=== PATIENT | male | born 1950 | race Caucasian/White ===

== ENCOUNTER → 2018-01-16 | Outpatient (CLI) | payer MEDICARE | END | disposition home or self-care (01) | LOC: US 13:01 | DX: I73.9 Peripheral vascular disease, unspecified (principal) ==

== ENCOUNTER 2021-12-12 04:04 | Emergency (ER) | payer OTHER, MEDICAID ==
[~2021-12-12] VITALS: Ht 175.2 cm; Wt 145.1 kg
[2021-12-12 04:28] LABS: BASO # 0.1 10*3/uL (0.0-0.1); BASO % 0.8 % (0.0-1.0); EOS # 0.1 10*3/uL (0.0-0.4); EOS % 2.2 % (1.0-4.0); HEMATOCRIT 42.8 % (42.0-52.0); LYMPH # 1.8 10*3/uL (1.3-4.4); MEAN CELL VOLUME 89.5 fl (80.0-94.0); MEAN CORPUSCULAR HGB 29.7 pg (27.0-31.0); MEAN CORPUSCULAR HGB CONC 33.2 g/dl (33.0-37.0); MEAN PLATELET VOLUME 9.1 fl (9.6-12.3); MONO # 0.5 10*3/uL (0.1-1.0); NEUT % 61.1 % (47.0-73.0); PLATELET COUNT AUTOMATED 109 10*3/uL (130-400); RED BLOOD COUNT 4.78 10*6/uL (4.50-5.90); RED CELL DISTRI WIDTH 13.2 % (0-14.5); WHITE BLOOD COUNT 6.5 10*3/uL (4.8-10.8)
[2021-12-12 04:45] LABS: ALBUMIN 3.1 gm/dl (3.1-4.5); CREATININE 1.41 mg/dL (0.70-1.30); POTASSIUM 3.9 mmol/L (3.5-5.1); TOTAL PROTEIN 6.5 gm/dL (6.4-8.2)
== END 2021-12-12 08:52 | disposition home or self-care (01) ==
LOC: ED 04:04
PROVIDERS: Internal Medicine
DX: E11.40 Type 2 diabetes mellitus with diabetic neuropathy, unspecified (principal); Z88.6 Allergy status to analgesic agent; I25.2 Old myocardial infarction; Z86.718 Personal history of other venous thrombosis and embolism

== ENCOUNTER 2022-01-26 14:36 | Inpatient (IN) | payer OTHER ==
[~2022-01-26] VITALS: Ht 177.8 cm; Wt 138.9 kg
[2022-01-26 14:55] VITALS: BP 158/63
[2022-01-26 15:37] LABS: BASO % 0.6 % (0.0-1.0); EOS # 0.2 10*3/uL (0.0-0.4); EOS % 2.3 % (1.0-4.0); HEMATOCRIT 44.1 % (42.0-52.0); LYMPH # 1.2 10*3/uL (1.3-4.4); MEAN CELL VOLUME 90.9 fl (80.0-94.0); MEAN CORPUSCULAR HGB 30.1 pg (27.0-31.0); MEAN CORPUSCULAR HGB CONC 33.1 g/dl (33.0-37.0); MEAN PLATELET VOLUME 8.9 fl (9.6-12.3); MONO # 0.5 10*3/uL (0.1-1.0); MONO % 7.5 % (3.0-9.0); NEUT # 4.8 10*3/uL (2.3-7.9); PLATELET COUNT AUTOMATED 120 10*3/uL (130-400); RED BLOOD COUNT 4.85 10*6/uL (4.50-5.90); RED CELL DISTRI WIDTH 15.2 % (0-14.5); WHITE BLOOD COUNT 6.8 10*3/uL (4.8-10.8)
[2022-01-26 15:50] LABS: ACT PARTIAL THROMBO TIME 46.4 SECONDS (20.0-32.1); INTERNATIONAL NORM RATIO 2.6 (2.0-3.5)
[2022-01-26 15:53] LABS: ALKALINE PHOSPHATASE 92 U/L (45-117); BUN 14 mg/dl (7-24); CHLORIDE 103 mmol/L (98-107); POTASSIUM 3.9 mmol/L (3.5-5.1); SGOT/AST 21 IU/L (3-35); SGPT/ALT 34 U/L (12-78); SODIUM 135 mmol/L (136-145); TOTAL PROTEIN 7.4 gm/dL (6.4-8.2)
[2022-01-26 17:20] VITALS: BP 162/68
[2022-01-26] MEDS ORDERED: GABAPENTIN800 MG PO (18:25)
[2022-01-26] MEDS ORDERED: TRAMADOL HCL50 MG PO (18:27)
[2022-01-26] MEDS ORDERED: TRULICITY0.75 MG/0. SC (18:29)
[2022-01-26] MEDS ORDERED: QUETIAPINE FUMA50 M1 PO (18:30)
[2022-01-26] MEDS ORDERED: QUETIAPINE FUM200 M3 PO (18:31)
[2022-01-26] MEDS ORDERED: RIVASTIGMINE1 EAC1 T (18:32)
[2022-01-26] MEDS ORDERED: ATORVASTATIN CA10 M1 PO (18:33)
[2022-01-26] MEDS ORDERED: ALLOPURINOL100 MG PO (18:33)
[2022-01-26] MEDS ORDERED: BUMETANIDE1 MG PO (18:34)
[2022-01-26] MEDS ORDERED: CLONIDINE1 EAC1 T (18:35)
[2022-01-26] MEDS ORDERED: DOXAZOSIN MESYLA2 MG PO (18:37)
[2022-01-26] MEDS ORDERED: GLIPIZIDE5 MG PO (18:39)
[2022-01-26] MEDS ORDERED: JARDIANCE25 MG PO (18:41)
[2022-01-26] MEDS ORDERED: JANUVIA25 MG PO (18:41)
[2022-01-26] MEDS ORDERED: PRAMIPEXOLE0.125 MG PO (18:42)
[2022-01-26] MEDS ORDERED: TIZANIDINE HCL4 MG PO (18:43)
[2022-01-26] MEDS ORDERED: DULOXETINE HCL60 MG PO (18:44)
[2022-01-26] MEDS ORDERED: WARFARIN SODIUM5 MG PO (18:44)
[2022-01-26] MEDS ORDERED: DONEPEZIL HCL10 MG PO (18:46)
[2022-01-26] MEDS ORDERED: ZETIA10 MG PO (18:47)
[2022-01-26 20:00] VITALS: BP 131/62
[2022-01-27] VITALS: BP 160/73
[2022-01-27 06:24] LABS: BASO % 0.6 % (0.0-1.0); BUN 14 mg/dl (7-24); CHLORIDE 103 mmol/L (98-107); CHOLESTEROL 102 mg/dL (<200); CREATININE 1.16 mg/dL (0.70-1.30); EOS # 0.2 10*3/uL (0.0-0.4); EOS % 2.8 % (1.0-4.0); HEMATOCRIT 42.6 % (42.0-52.0); LYMPH # 1.4 10*3/uL (1.3-4.4); LYMPH % 22.2 % (27.0-41.0); MEAN CELL VOLUME 89.7 fl (80.0-94.0); MEAN CORPUSCULAR HGB 29.7 pg (27.0-31.0); MEAN CORPUSCULAR HGB CONC 33.1 g/dl (33.0-37.0); MEAN PLATELET VOLUME 9.5 fl (9.6-12.3); MONO # 0.6 10*3/uL (0.1-1.0); MONO % 9.9 % (3.0-9.0); NEUT % 63.2 % (47.0-73.0); PLATELET COUNT AUTOMATED 146 10*3/uL (130-400); POTASSIUM 3.4 mmol/L (3.5-5.1); RED BLOOD COUNT 4.75 10*6/uL (4.50-5.90); RED CELL DISTRI WIDTH 14.7 % (0-14.5); SGOT/AST 23 IU/L (3-35); SGPT/ALT 31 U/L (12-78); SODIUM 136 mmol/L (136-145); WHITE BLOOD COUNT 6.4 10*3/uL (4.8-10.8)
[2022-01-27 06:29] LABS: ALKALINE PHOSPHATASE 85 U/L (45-117); FREE T4 0.85 ng/dl (0.76-1.46); LDL CHOLESTEROL 20 mg/dL (9-159); TRIGLYCERIDES 241 mg/dl (<150)
[2022-01-27 06:30] LABS: ACT PARTIAL THROMBO TIME 46.1 SECONDS (20.0-32.1); INTERNATIONAL NORM RATIO 2.5 (2.0-3.5)
[2022-01-27 08:00] VITALS: BP 140/74
[2022-01-27 08:26] LABS: VITAMIN D, 25-HYDROXY 25.6 ng/mL (30-100)
[2022-01-27 12:00] VITALS: BP 106/77
[2022-01-27 16:00] VITALS: BP 141/102
[2022-01-27 20:00] VITALS: BP 144/55
[2022-01-28] VITALS (8 sets, daily range): BP systolic 141–155; BP diastolic 63–78
[2022-01-28 06:20] LABS: BUN 17 mg/dl (7-24); CHLORIDE 104 mmol/L (98-107); CREATININE 1.22 mg/dL (0.70-1.30); POTASSIUM 3.4 mmol/L (3.5-5.1); SODIUM 138 mmol/L (136-145)
[2022-01-28 06:22] LABS: BASO # 0.1 10*3/uL (0.0-0.1); BASO % 0.8 % (0.0-1.0); EOS # 0.3 10*3/uL (0.0-0.4); EOS % 3.8 % (1.0-4.0); HEMATOCRIT 41.4 % (42.0-52.0); LYMPH # 1.7 10*3/uL (1.3-4.4); LYMPH % 25.2 % (27.0-41.0); MEAN CELL VOLUME 89.4 fl (80.0-94.0); MEAN CORPUSCULAR HGB 29.4 pg (27.0-31.0); MEAN CORPUSCULAR HGB CONC 32.9 g/dl (33.0-37.0); MEAN PLATELET VOLUME 9.2 fl (9.6-12.3); MONO # 0.6 10*3/uL (0.1-1.0); MONO % 9.2 % (3.0-9.0); NEUT # 3.9 10*3/uL (2.3-7.9); NEUT % 59.8 % (47.0-73.0); PLATELET COUNT AUTOMATED 142 10*3/uL (130-400); RED BLOOD COUNT 4.63 10*6/uL (4.50-5.90); RED CELL DISTRI WIDTH 14.9 % (0-14.5); WHITE BLOOD COUNT 6.6 10*3/uL (4.8-10.8)
[2022-01-28 06:32] LABS: INTERNATIONAL NORM RATIO 1.6 (2.0-3.5)
[2022-01-29] VITALS: BP 135/92
[2022-01-29 04:00] VITALS: BP 132/88
[2022-01-29 05:32] LABS: BUN 16 mg/dl (7-24); CHLORIDE 102 mmol/L (98-107); CREATININE 1.14 mg/dL (0.70-1.30); POTASSIUM 3.4 mmol/L (3.5-5.1); SODIUM 135 mmol/L (136-145)
[2022-01-29 06:06] LABS: BASO # 0.1 10*3/uL (0.0-0.1); EOS # 0.4 10*3/uL (0.0-0.4); EOS % 5.3 % (1.0-4.0); HEMATOCRIT 41.1 % (42.0-52.0); LYMPH # 1.7 10*3/uL (1.3-4.4); LYMPH % 23.5 % (27.0-41.0); MEAN CELL VOLUME 91.3 fl (80.0-94.0); MEAN CORPUSCULAR HGB CONC 32.8 g/dl (33.0-37.0); MEAN PLATELET VOLUME 9.1 fl (9.6-12.3); MONO # 0.6 10*3/uL (0.1-1.0); MONO % 8.4 % (3.0-9.0); NEUT # 4.3 10*3/uL (2.3-7.9); NEUT % 60.5 % (47.0-73.0); PLATELET COUNT AUTOMATED 138 10*3/uL (130-400); WHITE BLOOD COUNT 7.1 10*3/uL (4.8-10.8)
[2022-01-29 06:22] LABS: INTERNATIONAL NORM RATIO 1.3 (2.0-3.5)
[2022-01-29 08:00] VITALS: BP 127/57
[2022-01-29 12:00] VITALS: BP 150/66
[2022-01-29 16:00] VITALS: BP 123/41
[2022-01-29 20:00] VITALS: BP 133/61
[2022-01-30] VITALS: BP 131/45
[2022-01-30 08:00] VITALS: BP 134/57; BP 146/77
[2022-01-30 12:00] VITALS: BP 136/55
[2022-01-30 16:00] VITALS: BP 148/60
[2022-01-30 20:00] VITALS: BP 113/88
[2022-01-31] VITALS: BP 132/62
[2022-01-31 08:00] VITALS: BP 114/58
[2022-01-31 12:00] VITALS: BP 101/52
[2022-01-31 16:00] VITALS: BP 135/73
[2022-01-31 20:00] VITALS: BP 141/72
[2022-02-01] VITALS: BP 126/64
[2022-02-01 06:11] LABS: POTASSIUM 3.2 mmol/L (3.5-5.1)
[2022-02-01 06:13] LABS: CREATININE 1.44 mg/dL (0.70-1.30)
[2022-02-01 06:44] LABS: BASO # 0.1 10*3/uL (0.0-0.1); BASO % 0.8 % (0.0-1.0); EOS # 0.3 10*3/uL (0.0-0.4); EOS % 3.8 % (1.0-4.0); HEMATOCRIT 40.9 % (42.0-52.0); LYMPH # 1.8 10*3/uL (1.3-4.4); LYMPH % 23.6 % (27.0-41.0); MEAN CELL VOLUME 89.9 fl (80.0-94.0); MEAN CORPUSCULAR HGB 29.9 pg (27.0-31.0); MEAN CORPUSCULAR HGB CONC 33.3 g/dl (33.0-37.0); MEAN PLATELET VOLUME 9.6 fl (9.6-12.3); MONO # 0.5 10*3/uL (0.1-1.0); NEUT # 4.8 10*3/uL (2.3-7.9); NEUT % 63.6 % (47.0-73.0); PLATELET COUNT AUTOMATED 138 10*3/uL (130-400); RED BLOOD COUNT 4.55 10*6/uL (4.50-5.90); RED CELL DISTRI WIDTH 14.6 % (0-14.5); WHITE BLOOD COUNT 7.5 10*3/uL (4.8-10.8)
[2022-02-01 08:00] VITALS: BP 120/64
[2022-02-01 08:30] LABS: INTERNATIONAL NORM RATIO 1.7 (2.0-3.5)
[2022-02-01 12:00] VITALS: BP 124/59
[2022-02-01 16:00] VITALS: BP 137/66
[2022-02-01 20:00] VITALS: BP 133/62
[2022-02-02] VITALS: BP 130/56
[2022-02-02 06:38] LABS: BUN 19 mg/dl (7-24); CHLORIDE 98 mmol/L (98-107); CREATININE 1.32 mg/dL (0.70-1.30); POTASSIUM 3.2 mmol/L (3.5-5.1); SODIUM 136 mmol/L (136-145)
[2022-02-02 08:00] VITALS: BP 120/50
[2022-02-02 12:00] VITALS: BP 134/57
[2022-02-02 16:00] VITALS: BP 128/49
[2022-02-02 20:00] VITALS: BP 134/69
[2022-02-03] VITALS: BP 127/63
[2022-02-03 08:00] VITALS: BP 124/63
[2022-02-03 08:12] LABS: BASO # 0.1 10*3/uL (0.0-0.1); BASO % 0.8 % (0.0-1.0); EOS # 0.4 10*3/uL (0.0-0.4); EOS % 6.5 % (1.0-4.0); HEMATOCRIT 42.4 % (42.0-52.0); LYMPH # 1.5 10*3/uL (1.3-4.4); LYMPH % 23.3 % (27.0-41.0); MEAN CELL VOLUME 88.9 fl (80.0-94.0); MEAN CORPUSCULAR HGB 29.6 pg (27.0-31.0); MEAN CORPUSCULAR HGB CONC 33.3 g/dl (33.0-37.0); MEAN PLATELET VOLUME 8.9 fl (9.6-12.3); MONO # 0.4 10*3/uL (0.1-1.0); MONO % 6.8 % (3.0-9.0); NEUT % 61.4 % (47.0-73.0); PLATELET COUNT AUTOMATED 120 10*3/uL (130-400); RED BLOOD COUNT 4.77 10*6/uL (4.50-5.90); RED CELL DISTRI WIDTH 14.6 % (0-14.5); WHITE BLOOD COUNT 6.4 10*3/uL (4.8-10.8)
[2022-02-03 08:26] LABS: BUN 19 mg/dl (7-24); CHLORIDE 99 mmol/L (98-107); CREATININE 1.19 mg/dL (0.70-1.30); POTASSIUM 3.3 mmol/L (3.5-5.1); SODIUM 136 mmol/L (136-145)
[2022-02-03 12:00] VITALS: BP 137/68
[2022-02-03 16:00] VITALS: BP 118/78
[2022-02-03 20:00] VITALS: BP 132/59
[2022-02-04] VITALS: BP 124/80
[2022-02-04 08:00] VITALS: BP 121/55
[2022-02-04 12:00] VITALS: BP 138/66
[2022-02-04] MEDS ORDERED: GABAPENTIN800 MG PO (15:15)
[2022-02-04] MEDS ORDERED: VITAMIN D3125 MC1 PO (15:15)
[2022-02-04] MEDS ORDERED: TRAMADOL HCL50 MG PO (15:15)
[2022-02-04] MEDS ORDERED: AUGMENTIN 875-875 MG PO (15:15)
[2022-02-04 16:00] VITALS: BP 162/69
[2022-02-04 20:00] VITALS: BP 128/65
[2022-02-05] VITALS: BP 131/63
[2022-02-05 05:22] LABS: BUN 21 mg/dl (7-24); CHLORIDE 98 mmol/L (98-107); POTASSIUM 3.2 mmol/L (3.5-5.1); SODIUM 135 mmol/L (136-145)
[2022-02-05 05:23] LABS: CREATININE 1.32 mg/dL (0.70-1.30)
[2022-02-05 06:14] LABS: BASO # 0.1 10*3/uL (0.0-0.1); BASO % 0.7 % (0.0-1.0); EOS # 0.3 10*3/uL (0.0-0.4); EOS % 3.5 % (1.0-4.0); HEMATOCRIT 41.3 % (42.0-52.0); LYMPH # 1.8 10*3/uL (1.3-4.4); LYMPH % 25.4 % (27.0-41.0); MEAN CELL VOLUME 89.2 fl (80.0-94.0); MEAN CORPUSCULAR HGB 29.4 pg (27.0-31.0); MEAN CORPUSCULAR HGB CONC 32.9 g/dl (33.0-37.0); MONO # 0.6 10*3/uL (0.1-1.0); MONO % 7.8 % (3.0-9.0); NEUT # 4.4 10*3/uL (2.3-7.9); NEUT % 61.6 % (47.0-73.0); PLATELET COUNT AUTOMATED 137 10*3/uL (130-400); RED BLOOD COUNT 4.63 10*6/uL (4.50-5.90); RED CELL DISTRI WIDTH 14.6 % (0-14.5); WHITE BLOOD COUNT 7.1 10*3/uL (4.8-10.8)
[2022-02-05 08:00] VITALS: BP 130/70
[2022-02-05 12:00] VITALS: BP 154/76
[2022-02-05 16:00] VITALS: BP 146/74
== END 2022-02-05 17:15 | DRG 617 ==
LOC: ED 14:36 → EDHOLD 16:24 → 4E 16:24 → EDHOLD 16:48 → 4E 16:49
PROVIDERS: Family Medicine; Internal Medicine; Registered Nurse; Student in an Organized Health Care Education/Training Program; ADMIT Internal Medicine; ATTEND Internal Medicine
PROC: 0JB90ZZ Excision of Buttock Subcutaneous Tissue and Fascia, Open Approach (ICD-10-PCS; 2022-01-27)
PROC: 0Y6V0Z0 Detachment at Right 4th Toe, Complete, Open Approach (ICD-10-PCS; principal; 2022-01-28)
PROC: 0Y6V0Z0 Detachment at Right 4th Toe, Complete, Open Approach (ICD-10-PCS; 2022-01-28)
PROC: 02HV33Z Insertion of Infusion Device into Superior Vena Cava, Percutaneous Approach (ICD-10-PCS; 2022-02-04)
DX: E11.69 Type 2 diabetes mellitus with other specified complication (principal); M86.171 Other acute osteomyelitis, right ankle and foot; L03.115 Cellulitis of right lower limb; Z68.42 Body mass index [BMI] 45.0-49.9, adult; M86.8X7 Other osteomyelitis, ankle and foot; N17.9 Acute kidney failure, unspecified; M85.17 Skeletal fluorosis, ankle and foot; S31.000A Unspecified open wound of lower back and pelvis without penetration into retroperitoneum, initial encounter; Z20.822 Contact with and (suspected) exposure to COVID-19; E11.43 Type 2 diabetes mellitus with diabetic autonomic (poly)neuropathy; E78.5 Hyperlipidemia, unspecified; E11.42 Type 2 diabetes mellitus with diabetic polyneuropathy; L89.320 Pressure ulcer of left buttock, unstageable; M1A.9XX0 Chronic gout, unspecified, without tophus (tophi); F41.1 Generalized anxiety disorder; I50.9 Heart failure, unspecified; E66.9 Obesity, unspecified; F03.90 Unspecified dementia, unspecified severity, without behavioral disturbance, psychotic disturbance, mood disturbance, and anxiety; D64.9 Anemia, unspecified; E87.6 Hypokalemia; E55.9 Vitamin D deficiency, unspecified; Z88.6 Allergy status to analgesic agent; Z79.899 Other long term (current) drug therapy; Z79.01 Long term (current) use of anticoagulants; Z86.718 Personal history of other venous thrombosis and embolism; Z90.49 Acquired absence of other specified parts of digestive tract